=== PATIENT | female | born 1990 | race Caucasian/White ===

== ENCOUNTER 2020-11-24 05:53 | Emergency (ER) | payer OTHER ==
[2020-11-24 06:07] VITALS: BP 128/72
--- NOTE | 2020-11-24 06:24 | ED Physician Documentation ---
PD HPI HEENT - Stated complaint Stated Complaint: L EAR PX - Chief complaint Chief Complaint: Heent - History obtained from History obtained from: Patient - Additional information Additional information: Sent swimming in the ocean about 4 days ago she has had a feeling of plugged left ear and cannot hear like there is water in her ear. She tried some drops and other conservative measures without relief. Review of Systems Constitutional: denies: Fever, Chills Ears: reports: Loss of hearing. denies: Ear pain Nose: denies: Rhinorrhea / runny nose, Congestion PD PAST MEDICAL HISTORY - Past Medical History Past Medical History: No - Past Surgical History Past Surgical History: No - Present Medications Home Medications: Ambulatory Orders Medication Instructions Recorded Confirmed No Known Home Medications 11/24/20 11/24/20 - Allergies Allergies/Adverse Reactions: Allergies Allergy/AdvReac Type Severity Reaction Status Date / Time No Known Drug Allergies Allergy Verified 11/24/20 06:04 - Social History Does the pt smoke?: No Smoking Status: Never smoker Does the pt drink ETOH?: Yes Does the pt have substance abuse?: No - Immunizations Immunizations are current?: Yes PD ED PE NORMAL - Vitals Vital signs reviewed: Yes - General General: Alert and oriented X 3, No acute distress - HEENT HEENT: Other (Both ears have cerumen impaction) - Neuro Neuro: Alert and oriented X 3, Normal speech Results - Vitals Vitals: Vital Signs - 24 hr 11/24/20 06:04 Temperature 36.7 C Heart Rate 81 Respiratory 16 Rate Blood Pressure 128/72 O2 Saturation 99 Oxygen O2 Source Room air Procedures - General procedure General procedure: Using a combination of syringe irrigation and curette, both ears were cleared of cerumen, with significant relief for the patient. Departure - Departure Disposition: 01 Home, Self Care Clinical Impression: Impacted cerumen of both ears Instructions: ED Earwax Removal Discharge Date/Time: 11/24/20 06:38
== END 2020-11-24 06:38 | disposition home or self-care (01) ==
LOC: ED 05:53
DX: H61.23 Impacted cerumen, bilateral (principal)
CPT/HCPCS: 99281; 99283

== ENCOUNTER 2021-09-30 01:43 | Emergency (ER) | payer OTHER ==
[2021-09-30 01:50] VITALS: BP 130/79
[2021-09-30] MEDS ORDERED: predniSONE 20 MG TABLET PO STA (02:25)
--- NOTE | 2021-09-30 02:28 | ED Physician Documentation ---
PD HPI HEENT - Stated complaint Stated Complaint: THROAT PX - Chief complaint Chief Complaint: Heent - History obtained from History obtained from: Patient - Additional information Additional information: The patient comes to the emergency department chief complaint of sore throat for the last 4 days. She states that about a month ago, she began having sinus congestion after other family members had had something similar, and was treated at that time with a decongestant and an antibiotic. She states that that mostly seem to go away, though she has had a little bit of a lingering cough and mild nasal congestion. She has not had any fevers or chills and states that otherwise, she still just feels like she is getting over the lingering effects of the illness she had. She states she is actually felt very good this week and has gone running 3 times. However, she states that the sore throat has been very bad and that tonight, it hurts some but she could not sleep so she came in. The patient states that she has been taking Tylenol every day, several times a day and that this does seem to help but it does not totally take the pain away. The patient states she feels very uncomfortable with the idea of taking Tylenol on a daily basis and feels that it will be harmful if she continues to do this. She does note that she is taking no more than 650 mg every 4 hours. The patient was seen in urgent care 2 days ago and after hearing her story and examining her, her provider felt that this was probably just postnasal drip and gave her a single dose of steroid to help with inflammation. Patient states that it improved the symptoms greatly for about 24 hours but then the sore throat began to come back. The patient does admit to taking Tylenol before coming here and her throat is doing a little better. No other complaints at this time. Review of Systems Ten Systems: 10 systems reviewed and negative Constitutional: reports: Reviewed and negative Eyes: reports: Reviewed and negative Ears: reports: Reviewed and negative Nose: reports: Congestion Throat: reports: Sore throat Cardiac: reports: Reviewed and negative Respiratory: reports: Cough GI: reports: Reviewed and negative : reports: Reviewed and negative Skin: reports: Reviewed and negative Musculoskeletal: reports: Reviewed and negative Neurologic: reports: Reviewed and negative Psychiatric: reports: Reviewed and negative Endocrine: reports: Reviewed and negative Immunocompromised: reports: Reviewed and negative PD PAST MEDICAL HISTORY - Past Medical History Past Medical History: No - Past Surgical History Past Surgical History: No - Present Medications Home Medications: Ambulatory Orders Medication Instructions Recorded Confirmed HYDROcodone/ACET 7.5/325 DARCI 10 ml PO Q6HR PRN #60 ml 09/30/21 [Lortab 7.5/325 Darci] predniSONE [Deltasone] 60 mg PO DAILY 3 Days #9 tablet 09/30/21 - Allergies Allergies/Adverse Reactions: Allergies Allergy/AdvReac Type Severity Reaction Status Date / Time No Known Drug Allergies Allergy Verified 09/30/21 01:48 - Social History Does the pt smoke?: No Smoking Status: Never smoker Does the pt drink ETOH?: Yes Does the pt have substance abuse?: No - Immunizations Immunizations are current?: Yes PD ED PE NORMAL - Vitals Vital signs reviewed: Yes - General General: Alert and oriented X 3, No acute distress, Well developed/nourished - HEENT HEENT: Atraumatic, PERRL, EOMI, Moist mucous membranes, Pharynx benign (Mild erythema the arches but otherwise negative for tonsillar enlargement or exudates.) - Neck Neck: Supple, no meningeal sign, No adenopathy - Cardiac Cardiac: RRR, No murmur, Strong equal pulses - Respiratory Respiratory: No respiratory distress, Clear bilaterally - Derm Derm: Normal color, Warm and dry, No rash - Extremities Extremities: No deformity, No edema - Neuro Neuro: Alert and oriented X 3 - Psych Psych: Normal mood, Normal affect Results - Vitals Vitals: Vital Signs - 24 hr 09/30/21 01:45 Temperature 36.4 C L Heart Rate 94 Respiratory 18 Rate Blood Pressure 130/79 O2 Saturation 100 Oxygen O2 Source Room air PD MEDICAL DECISION MAKING - ED course Complexity details: considered differential, d/w patient ED course: I discussed with the patient that given her absence of new other symptoms, it is unlikely that she has strep or mono. It is possible that she has picked up a very mild case of new virus which is causing only a sore throat at this point, but it is hard to say as the patient does still have some nasal congestion and probably postnasal drip. At this point in time, I discussed with the patient that we can put her on a short course of steroids to help with the discomfort and also, a very small amount of a liquid narcotic for at night if she is very uncomfortable. However, the patient can also take [id number] ibuprofen and Tylenol if this is helpful. I discussed with the patient that it is not harmful to take these 2 medications as long as they are taken at the proper dosing and in the proper intervals. As far as testing, I have left this up to the patient. I feel that it is unlikely that testing for strep or mono will yield a positive result, and given that the patient does not have any malaise or other new or worsening symptoms besides a sore throat, it is unlikely that a viral panel will yield any helpful results. However, since the patient has had lingering symptoms and now a sore throat that is keeping her from sleep, I have offered the option to test. The patient has declined testing and would just like symptomatic management at this time. She is given a dose of prednisone in the emergency department and prescriptions for the next few days for at home. We have discussed the usual indications for return and follow-up. Departure - Departure Disposition: Home, Self Care Clinical Impression: Pharyngitis Qualifiers: Pharyngitis/tonsillitis etiology: unspecified etiology Qualified Code(s): J02.9 - Acute pharyngitis, unspecified Condition: Stable Instructions: ED Pharyngitis Viral Prescriptions: HYDROcodone/ACET 7.5/325 DARCI [Lortab 7.5/325 Darci] 10 ml PO Q6HR PRN #60 ml PRN Reason: Pain predniSONE [Deltasone] 60 mg PO DAILY 3 Days #9 tablet Comments: Your throat is mildly red, but otherwise, there is no evidence of swollen t onsils or the white exudates that we normally see with either strep or mono. Additionally, you have no other new symptoms to indicate significant illness. It is possible that you picked up a very mild case of a new virus that is mainly affecting your throat, or it is also possible that you have a combination of allergies and lingering effects of the virus that you had previously, that are causing some extra drainage into the back your throat, resulting in inflammation. This can cause significant pain, even though it does not represent a serious illness. At this point in time, you have opted to have symptomatic treatment without testing for other illness, which is reasonable. You may take the steroids each day for the next few days to help with inflammation and discomfort in your throat. You may also use ibuprofen and Tylenol as desired/needed. If you wish, you may take a dose of the liquid pain medication at night to help with discomfort and allow you to sleep better; however, please do not take this and Tylenol within 4 hours of each other, as the liquid medicine contains Tylenol as well. If you are not feeling better in the next week, please follow-up with your primary care physician for reevaluation. Your prescriptions have been electronically transmitted to the [facility] pharmacy in [place].
--- NOTE | 2021-09-30 13:09 | ED Physician Documentation ---
ED Addendum - Addendum Addendum: 09/30/21 13:09 Took call from patient, unable to fill these prescriptions at the [facility] pharmacy and the prescriptions were canceled and resent to [facility].
== END 2021-09-30 02:37 | disposition home or self-care (01) ==
LOC: ED 01:43
DX: J02.9 Acute pharyngitis, unspecified (principal)
CPT/HCPCS: 99282; J7512

== ENCOUNTER 2022-04-23 11:18 | Emergency (ER) | payer OTHER ==
[2022-04-23 11:52] VITALS: BP 141/95
--- NOTE | 2022-04-23 14:23 | ED Physician Documentation ---
History of Present Illness - Stated complaint Stated Complaint: L ARM PX - Chief complaint Chief Complaint: Ext Problem - History obtained from History obtained from: Patient - Additonal information Additional information: This is a very pleasant 31-year-old female who is generally healthy, who presents with 4 days of left arm pain, sensation of fullness and heaviness, some tingling into the tips of the fingers and feels cold to her. It started after she put the turkey in for Thanksgiving dinner but she states she did not strain her arm and it was not heavy, she denies any other repetitive motion activity, atypical movements, weightlifting or other lifting where she could have strained her arm or shoulder. She denies any neck or back injury. She denies any recent immobility or surgeries. She has not had any other areas of numbness or tingling, no facial numbness, no speech difficulty, no confusion or alteration in mental status, no ataxia. She is left-handed and it states she has noticed herself not instinctively using her left hand like she normally would. She does note that her son sometimes crawls into bed with her at night and digs up into her left scapula and she wonders if this may be contributing. She states she thought it was probably just a muscle strain but because it was on her left side and it was not getting better and she had some numbness, tingling and different sensations in her arm, she was concerned and wanted to be evaluated. Of note, patient does state that she is taken Tylenol on 2 occasions and thinks that that did help with the pain and Has noticed that she would forget about it sometimes during the day when she was distracted. Review of Systems Ten Systems: 10 systems reviewed and negative (Except as noted per HPI) PD PAST MEDICAL HISTORY - Past Medical History Past Medical History: No - Past Surgical History Past Surgical History: No - Present Medications Home Medications: Ambulatory Orders Medication Instructions Recorded Confirmed HYDROcodone/ACET 7.5/325 DARCI 10 ml PO Q6HR PRN #60 ml 09/30/21 [Lortab 7.5/325 Darci] predniSONE [Deltasone] 60 mg PO DAILY 3 Days #9 tablet 09/30/21 - Allergies Allergies/Adverse Reactions: Allergies Allergy/AdvReac Type Severity Reaction Status Date / Time No Known Drug Allergies Allergy Verified 04/23/22 11:52 - Social History Does the pt smoke?: No Smoking Status: Never smoker Does the pt drink ETOH?: Yes Does the pt have substance abuse?: No - Immunizations Immunizations are current?: Yes PD ED PE NORMAL - Vitals Vital signs reviewed: Yes - General General: Alert and oriented X 3, No acute distress, Well developed/nourished - HEENT HEENT: Atraumatic, Moist mucous membranes, Pharynx benign - Neck Neck: Supple, no meningeal sign, No JVD, Other (Full neck range of motion) - Cardiac Cardiac: RRR, No murmur, No gallop, No rub, Strong equal pulses - Respiratory Respiratory: No respiratory distress, Clear bilaterally - Abdomen Abdomen: Normal bowel sounds, Soft - Back Back: No spinal TTP - Derm Derm: Normal color, Warm and dry, No rash - Extremities Extremities: No deformity, No tenderness to palpate, Normal ROM s pain, No edema, Other (Brisk cap refill of the left arm, no appreciable weakness, And is able to move throughout range of motion. She does have tenderness with palpation of the left trapezius and around the left scapula) - Neuro Neuro: Alert and oriented X 3, No motor deficit, Normal speech Eye Opening: Spontaneous Motor: Obeys Commands Verbal: Oriented GCS Score: 15 - Psych Psych: Normal mood, Normal affect Results - Vitals Vitals: Vital Signs - 24 hr 04/23/22 11:48 Temperature 36.7 C Heart Rate 108 H Respiratory 14 Rate Blood Pressure 141/95 H O2 Saturation 99 Oxygen O2 Source Room air - EKG (time done) No standard instances Rhythm: NSR [place]: Normal Intervals: Normal NE Ischemia: Normal ST segments Compare to prior EKG: Old EKG unavailable Computer interpretation: Agree with computer - Labs Labs: Laboratory Tests 04/23/22 04/23/22 04/23/22 14:27 14:27 14:27 WBC 4.6 L RBC 4.43 Hgb 13.9 Hct 39.1 MCV 88.3 MCH 31.4 H MCHC 35.5 RDW 11.8 L Plt Count 184 MPV 9.3 Neut # (Auto) 2.1 Lymph # (Auto) 2.2 Hale # (Auto) 0.3 Eos # (Auto) 0.0 Baso # (Auto) 0.0 Absolute Nucleated RBC 0.00 Nucleated RBC % 0.0 Sodium 139 Potassium 3.7 Chloride 103 Carbon Dioxide 27 Anion Gap 9.0 BUN 12 Creatinine 0.9 Estimated GFR (MDRD) 72 L Glucose 112 H Calcium 9.9 Troponin I High Sens < 2.3 L PD MEDICAL DECISION MAKING - ED course Complexity details: reviewed results, re-evaluated patient, considered differential, d/w patient ED course: This is a generally healthy And very pleasant 31-year-old female who presented with left arm fullness sensation, weakness, discomfort As per HPI. She is well- appearing on physical exam with no obvious motor deficit, she does have some Tenderness around the left scapula and left trapezius but it was not clear that this is the cause of her symptoms as patient cannot recall any acute injuries or stress in that area. I discussed with patient the differentials could include pinched nerve, muscle tightness, and less likely ACS, DVT, or acute neurologic event. Patient had no appreciable neurodeficits on exam but did feel decreased sensation in the left arm did not feel the same to her therefore we did discuss doing additional evaluation such as a CT scan and patient did want to proceed. The CT scan was negative. I also discussed with the patient that I recommend ruling out ACS as well though the suspicion is very low. Her chest troponin is negative, other labs are negative, EKG shows no acute ischemic changes.I think because the patient's work-up here has been reassuring and I have lower suspicion for DVT or ACS or acute neurologic event, I do think this is a muscle strain and or pinched nerve and recommended supportive measures including ongoing ibuprofen and Tylenol and warm compresses as well as light massage of the area and try to avoid any recurrent stressors or in repetitive motion. Patient is to follow-up with her primary doctor if no improvement in 2 to 3 days or return to the ER at any point time if new or worsening symptoms. Departure - Departure Disposition: 01 Home, Self Care Clinical Impression: Pain in extremity Qualifiers: Extremity pain location: upper extremity Laterality: left Qualified Code(s): M79.602 - Pain in left arm Condition: Good Instructions: ANTI-INFLAMMATORY, General Comments: You presented with left arm pain as well as a sensation of fullness, heaviness and tingling. Your physical exam here is reassuring and I suspect this is related to tightness in the left trapezius muscle however to further evaluate, we did obtain A cardiac work-up which was reassuring, her EKG is stable, we also obtained a head CT which also was stable. Sees continue ibuprofen, Tylenol and heating pad to the area and do light stretching and range of motion activity. If you are having ongoing symptoms, please see your primary doctor in the next several days to a week. Discharge Date/Time: 04/23/22 15:47
[2022-04-23 14:35] LABS: BASOPHILS % (AUTO) 0.9 %; EOSINOPHILS % (AUTO) 0.7 %; HCT - HEMATOCRIT 39.1 % (37.0-47.0); HGB - HEMOGLOBIN 13.9 g/dL (12.0-16.0); LYMPHOCYTES # (AUTO) 2.2 10^3/uL (1.5-3.5); LYMPHOCYTES % (AUTO) 47.1 %; MEAN CORPUSCULAR HEMOGLOBIN 31.4 pg (27.0-31.0); MEAN CORPUSCULAR HGB CONC 35.5 g/dL (32.0-36.0); MEAN CORPUSCULAR VOLUME 88.3 fL (81.0-99.0); MEAN PLATELET VOLUME 9.3 fL (7.9-10.8); MONOCYTES # (AUTO) 0.3 10^3/uL (0.0-1.0); MONOCYTES % (AUTO) 6.7 %; NEUTROPHILS # (AUTO) 2.1 10^3/uL (1.5-6.6); NEUTROPHILS % (AUTO) 44.4 %; PLT - PLATELET COUNT 184 10^3/uL (130-450); RED BLOOD COUNT 4.43 10^6/uL (4.20-5.40); RED CELL DISTRIBUTION WIDTH 11.8 % (12.0-15.0); WHITE BLOOD COUNT 4.6 x10^3/uL (4.8-10.8)
--- NOTE | 2022-04-23 14:49 | CT Report ---
PROCEDURE: HEAD WO INDICATIONS: left arm weakness/heaviness TECHNIQUE: Noncontrast 4.5 mm thick angled axial sections acquired from the foramen magnum to the vertex. For r adiation dose reduction, the following was used: automated exposure control, adjustment of mA and/or kV according to patient size. COMPARISON: None. FINDINGS: Image quality: There is streak artifact seen through the skull base. CSF spaces: Basal cisterns are patent. No extra-axial fluid collections. Ventricles are normal in size and shape. Brain: No midline shift. No intracranial masses or hemorrhage. Whitlock-white matter interface is norm al. Skull and face: Calvarium and visualized facial bones are intact, without suspicious lesions. Sinuses: Visualized sinuses and mastoids are clear. IMPRESSION: No intracranial hemorrhage is seen. No significant intracranial abnormality is seen. If there is strong clinical concern for a stroke, please consider a dedicated brain MRI for further e valuation (assuming that there is no contraindication to MRI). Reviewed by: Evan Hardy MD on 04/23/2022 1:48 PM [facility] Approved by: Evan Hardy MD on 04/23/2022 1:48 PM [facility] Station ID: [id number]
[2022-04-23 14:54] LABS: CALCIUM 9.9 mg/dL (8.5-10.3); CREATININE 0.9 mg/dL (0.4-1.0); POTASSIUM 3.7 mmol/L (3.5-5.0)
== END 2022-04-23 15:47 | disposition home or self-care (01) ==
LOC: ED 11:18
DX: M79.602 Pain in left arm (principal)
CPT/HCPCS: 36415; 80048; 84484; 85025; 93005; 99284

== ENCOUNTER 2022-08-20 03:14 | Outpatient (CLI) | payer OTHER | END 2022-08-20 03:15 | disposition critical access hospital (66) | LOC: EMS 03:14 | DX: R11.2 Nausea with vomiting, unspecified (principal); R19.7 Diarrhea, unspecified; R25.2 Cramp and spasm; R52 Pain, unspecified | CPT/HCPCS: A0425; A0427 ==

== ENCOUNTER 2022-08-20 03:26 | Emergency (ER) | payer OTHER ==
[2022-08-20] MEDS ORDERED: KETOROLAC 30 MG/ML VIAL IVP STA (03:33)
[2022-08-20] MEDS ORDERED: SODIUM CHLORIDE 0.9% 1,000 ML IV STA ×2 (03:33→06:39)
[2022-08-20 03:54] LABS: BASOPHILS % (AUTO) 0.2 %; EOSINOPHILS % (AUTO) 0.2 %; HCT - HEMATOCRIT 42.8 % (37.0-47.0); LYMPHOCYTES # (AUTO) 0.5 10^3/uL (1.5-3.5); LYMPHOCYTES % (AUTO) 4.3 %; MEAN CORPUSCULAR HEMOGLOBIN 31.5 pg (27.0-31.0); MEAN CORPUSCULAR VOLUME 89.9 fL (81.0-99.0); MEAN PLATELET VOLUME 9.2 fL (7.9-10.8); MONOCYTES # (AUTO) 0.7 10^3/uL (0.0-1.0); MONOCYTES % (AUTO) 5.8 %; NEUTROPHILS # (AUTO) 10.3 10^3/uL (1.5-6.6); NEUTROPHILS % (AUTO) 89.2 %; PLT - PLATELET COUNT 181 10^3/uL (130-450); RED BLOOD COUNT 4.76 10^6/uL (4.20-5.40); RED CELL DISTRIBUTION WIDTH 12.4 % (12.0-15.0); WHITE BLOOD COUNT 11.6 x10^3/uL (4.8-10.8)
[2022-08-20 04:06] LABS: ALBUMIN/GLOBULIN RATIO 1.8 (1.0-2.2); CALCIUM 9.1 mg/dL (8.5-10.3); CREATININE 0.9 mg/dL (0.4-1.0); POTASSIUM 3.9 mmol/L (3.5-5.0); TOTAL PROTEIN 7.8 g/dL (6.7-8.2)
--- NOTE | 2022-08-20 04:06 | ED Physician Documentation ---
PD HPI NVD - Stated complaint Stated Complaint: N/V/D - Chief complaint Chief Complaint: Abd Pain - History obtained from History obtained from: Patient, EMS - History of Present Illness Timing - onset: Enter time (2299), Yesterday Timing - duration: Hours Timing - details: Gradual onset, Still present Associated symptoms: Abdominal pain Contributing factors: Sick contact (son sick with similar has resolved) Improved by: Vomiting Similar symptoms before: Diagnosis (gastroenteritis) Recently seen: Not recently seen - Additonal information Additional information: 31-year-old Dana Godinez is brought in by paramedics earlier this morning with acute onset of vomiting and abdominal pain. She has a young son who is accompanying her here today who was ill with similar and has resolved his symptoms. She received zofran and some fluid en-route to the hospital and has improvement in her nausea and has not vomited since. Review of Systems Constitutional: denies: Fever Ears: denies: Ear pain Nose: denies: Congestion Throat: denies: Sore throat Cardiac: denies: Chest pain / pressure, Palpitations Respiratory: denies: Dyspnea, Cough GI: reports: Abdominal Pain, Nausea, Vomiting : denies: Dysuria, Frequency PD PAST MEDICAL HISTORY - Past Medical History Past Medical History: No - Past Surgical History Past Surgical History: No - Present Medications Home Medications: Ambulatory Orders Medication Instructions Recorded Confirmed Ondansetron Odt [Zofran] 4 mg TL Q6H PRN #10 tablet 08/20/22 - Allergies Allergies/Adverse Reactions: Allergies Allergy/AdvReac Type Severity Reaction Status Date / Time No Known Drug Allergies Allergy Verified 08/20/22 03:49 - Social History Does the pt smoke?: No Smoking Status: Never smoker Does the pt drink ETOH?: Yes Does the pt have substance abuse?: No - Immunizations Immunizations are current?: Yes - POLST Patient has POLST: No PD ED PE NORMAL - Vitals Vital signs reviewed: Yes (tachy and wide pulse pressure ) - General General: Alert and oriented X 3, Well developed/nourished - HEENT HEENT: Atraumatic, PERRL, EOMI - Neck Neck: Supple, no meningeal sign, No bony TTP, No JVD - Cardiac Cardiac: RRR, No murmur - Respiratory Respiratory: No respiratory distress, Clear bilaterally - Abdomen Abdomen: Normal bowel sounds, Soft, Non distended, No organomegaly, Other (mild general tenderness without garding or rebound tenderness. ) - Back Back: No CVA TTP, No spinal TTP - Derm Derm: Normal color, Warm and dry, No rash - Extremities Extremities: No deformity, No edema - Neuro Neuro: Alert and oriented X 3, No motor deficit, No sensory deficit, Normal speech Eye Opening: Spontaneous Motor: Obeys Commands Verbal: Oriented GCS Score: 15 - Psych Psych: Normal mood, Normal affect Results - Vitals Vitals: Vital Signs - 24 hr 08/20/22 08/20/22 08/20/22 03:28 03:41 04:09 Temperature 37.0 C Heart Rate 107 H 113 H 113 H Respiratory 18 18 16 Rate Blood Pressure 102/47 L 102/47 L 106/79 O2 Saturation 100 97 98 08/20/22 08/20/22 08/20/22 05:27 05:47 06:51 Temperature 36.3 C L 36.3 C L Heart Rate 104 H 104 H 108 H Respiratory 18 18 18 Rate Blood Pressure 115/63 97/54 L 96/60 O2 Saturation 95 96 96 08/20/22 08:00 Temperature Heart Rate 97 Respiratory 20 Rate Blood Pressure 125/67 O2 Saturation 100 Oxygen O2 Source Room air - Labs Labs: Laboratory Tests 08/20/22 08/20/22 08/20/22 03:50 03:50 07:18 WBC 11.6 H RBC 4.76 Hgb 15.0 Hct 42.8 MCV 89.9 MCH 31.5 H MCHC 35.0 RDW 12.4 Plt Count 181 MPV 9.2 Neut # (Auto) 10.3 H Lymph # (Auto) 0.5 L Blair # (Auto) 0.7 Eos # (Auto) 0.0 Baso # (Auto) 0.0 Absolute Nucleated RBC 0.00 Nucleated RBC % 0.0 Sodium 138 Potassium 3.9 Chloride 105 Carbon Dioxide 22 Anion Gap 11.0 BUN 16 Creatinine 0.9 Estimated GFR (MDRD) 72 L Glucose 105 H Calcium 9.1 Total Bilirubin 1.0 AST 17 ALT 13 Alkaline Phosphatase 47 Total Protein 7.8 Albumin 5.0 Globulin 2.8 Albumin/Globulin Ratio 1.8 Lipase 24 Urine Color YELLOW Urine Clarity CLEAR Urine pH 6.5 Ur Specific Ava 1.020 Urine Protein NEGATIVE Urine Glucose (UA) NEGATIVE Urine Ketones >=80 H Urine Occult Blood NEGATIVE Urine Nitrite NEGATIVE Urine Bilirubin SMALL H Urine Urobilinogen 0.2 (NORMAL) Ur Leukocyte Esterase NEGATIVE Ur Microscopic Review NOT INDICATED Urine Culture Comments NOT INDICATED Urine HCG, Qual NEGATIVE PD Medical Decision Making - ED course Complexity details: reviewed old records, reviewed results, re-evaluated patient, considered differential, d/w patient, d/w family ED course: 31-year-old female with acute nausea vomiting abdominal pain presents to the emergency department with her children also sick with vomiting. She had some relief with Zofran in route she had good relief of her pain with a single dose of Toradol and she had further nausea without relief with zofran she was administered Reglan with improvement. She is administered a second liter of saline. Departure - Departure Disposition: 01 Home, Self Care Clinical Impression: Gastroenteritis Condition: Stable Instructions: ED Gastroenteritis Viral Follow-Up: ADINA Garcia [Provider Group] Prescriptions: Ondansetron Odt [Zofran] 4 mg TL Q6H PRN #10 tablet PRN Reason: Nausea / Vomiting Comments: Dana, today looks like you have viral gastroenteritis and this is considered contagious obviously your children also have evidence of this. Today we were able to provide some intravenous fluid and some nausea medication. I have E scribed some nausea medication for you to the [facility] in [place].
[2022-08-20] MEDS ORDERED: ONDANSETRON 4 MG/2 ML VIAL IVP STA (05:26)
[2022-08-20] MEDS ORDERED: METOCLOPRAMIDE 10 MG/2 ML VIAL IVP STA (05:46)
[2022-08-20 07:32] LABS: GLUCOSE, URINE (UA) NEGATIVE (NEGATIVE); KETONES,URINE (UA) >=80 mg/dL (NEGATIVE); LEUKOCYTE ESTERASE, URINE NEGATIVE (NEGATIVE); NITRITE,URINE NEGATIVE (NEGATIVE); OCCULT BLOOD,URINE NEGATIVE (NEGATIVE); PH,URINE 6.5 PH (5.0-7.5); PROTEIN,URINE NEGATIVE (NEGATIVE); UROBILINOGEN,URINE 0.2 (NORMAL) E.U./dL (NORMAL)
[2022-08-20 07:43] LABS: CLARITY,URINE CLEAR (CLEAR); HCG UR QUAL NEGATIVE
[2022-08-20 07:44] LABS: BILIRUBIN,URINE SMALL (NEGATIVE); ICTOTEST,URINE POSITIVE
[2022-08-20 08:04] VITALS: BP 125/67
== END 2022-08-20 08:48 | disposition home or self-care (01) ==
LOC: EDUNIT# → ED 03:26
DX: K52.9 Noninfective gastroenteritis and colitis, unspecified (principal)
CPT/HCPCS: 36415; 80053; 81003; 81025; 83690; 85025; 96374; 96375; 99283; J2765; 81001; 87086

== ENCOUNTER 2023-09-04 16:27 | Emergency (ER) | payer OTHER ==
[2023-09-04 16:58] VITALS: O2SAT 100
[2023-09-04 17:48] LABS: BILIRUBIN,URINE NEGATIVE (NEGATIVE); GLUCOSE, URINE (UA) NEGATIVE (NEGATIVE); HCG UR QUAL NEGATIVE; KETONES,URINE (UA) NEGATIVE (NEGATIVE); LEUKOCYTE ESTERASE, URINE TRACE (NEGATIVE); NITRITE,URINE NEGATIVE (NEGATIVE); OCCULT BLOOD,URINE NEGATIVE (NEGATIVE); PROTEIN,URINE NEGATIVE (NEGATIVE); UROBILINOGEN,URINE 0.2 (NORMAL) E.U./dL (NORMAL)
[2023-09-04 17:56] LABS: AMORPHOUS SEDIMENT,UR Few /LPF; BACTERIA,URINE Rare /HPF (None Seen); CLARITY,URINE HAZY (CLEAR); RBC,URINE None Seen /HPF (0-5); SQUAMOUS EPITHELIAL CELL,UR FEW Squamous (<= Few); WBC,URINE 0-3 /HPF (0-5)
--- NOTE | 2023-09-04 17:56 | ED Physician Documentation ---
History of Present Illness - Stated complaint Stated Complaint: PEARSON - Chief complaint Chief Complaint: Neuro - History obtained from History obtained from: Patient - History of Present Illness Pain level max: 6 Pain level now: 6 - Additonal information Additional information: Patient is a 32-year-old female who presents to the emergency department stating that she has had intermittent headaches for the past 2 weeks. She states that it will usually resolve with Tylenol but then recurs. She states she is training for a marathon. She states that sometimes running helps the headache. Did have slight rhinorrhea and congestion last week, none now. No numbness or tingling. No vomiting. Occasional nausea. She states the pain is in the back of the head, not the neck. No facial pain. No sinus pain. No sore throat. She states there is a possibility of . Review of Systems Constitutional: denies: Fever, Chills Eyes: denies: Decreased vision Ears: denies: Ear pain Nose: denies: Rhinorrhea / runny nose, Congestion Respiratory: denies: Cough GI: denies: Nausea, Vomiting, Diarrhea Skin: denies: Rash Musculoskeletal: denies: Neck pain, Back pain Neurologic: denies: Focal weakness, Numbness, Head injury PD PAST MEDICAL HISTORY - Past Medical History Past Medical History: Yes - Past Surgical History Past Surgical History: No - Present Medications Home Medications: Ambulatory Orders Medication Instructions Recorded Confirmed No Known Home Medications 09/04/23 09/04/23 - Allergies Allergies/Adverse Reactions: Allergies Allergy/AdvReac Type Severity Reaction Status Date / Time No Known Drug Allergies Allergy Verified 09/04/23 16:53 - Social History Does the pt smoke?: No Smoking Status: Never smoker Does the pt drink ETOH?: Yes Does the pt have substance abuse?: No - Immunizations Immunizations are current?: Yes - POLST Patient has POLST: No PD ED PE NORMAL - Vitals Vital signs reviewed: Yes - General General: Alert and oriented X 3, No acute distress - HEENT HEENT: Atraumatic, PERRL, EOMI, Ears normal, Moist mucous membranes, Pharynx benign - Neck Neck: Supple, no meningeal sign, No bony TTP, No JVD, No bruit - Cardiac Cardiac: RRR, Strong equal pulses - Respiratory Respiratory: No respiratory distress, Clear bilaterally - Abdomen Abdomen: Soft, Non tender, Non distended - Back Back: No spinal TTP - Derm Derm: Warm and dry - Extremities Extremities: No edema, No calf tenderness / cord - Neuro Neuro: Alert and oriented X 3, 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, No motor deficit, No sensory deficit, Normal speech, Other (Normal cerebellar test, normal gait) Eye Opening: Spontaneous Motor: Obeys Commands Verbal: Oriented GCS Score: 15 - Psych Psych: Normal mood, Normal affect Results - Vitals Vitals: Vital Signs - 24 hr 09/04/23 09/04/23 09/04/23 16:47 16:53 17:35 Temperature 36.9 C Heart Rate 75 86 92 Respiratory 16 16 16 Rate Blood Pressure 134/71 H 137/105 H 123/65 O2 Saturation 100 100 100 09/04/23 19:39 Temperature Heart Rate 53 L Respiratory 16 Rate Blood Pressure 116/86 H O2 Saturation 100 Oxygen O2 Source Room air - Labs Labs: Laboratory Tests 09/04/23 09/04/23 09/04/23 17:37 17:37 18:10 WBC 8.9 RBC 4.43 Hgb 14.0 Hct 39.7 MCV 89.6 MCH 31.6 H MCHC 35.3 RDW 12.6 Plt Count 233 MPV 9.3 Neut # (Auto) 5.4 Lymph # (Auto) 2.9 [place] # (Auto) 0.5 Eos # (Auto) 0.1 Baso # (Auto) 0.0 Absolute Nucleated RBC 0.00 Nucleated RBC % 0.0 Sodium Potassium Chloride Carbon Dioxide Anion Gap BUN Creatinine Estimated GFR (MDRD) Glucose Calcium Phosphorus Magnesium Total Bilirubin AST ALT Alkaline Phosphatase Total Protein Albumin Globulin Albumin/Globulin Ratio Urine Color YELLOW Urine Clarity HAZY Urine pH 7.0 Ur Specific Lena 1.020 Urine Protein NEGATIVE Urine Glucose (UA) NEGATIVE Urine Ketones NEGATIVE Urine Occult Blood NEGATIVE Urine Nitrite NEGATIVE Urine Bilirubin NEGATIVE Urine Urobilinogen 0.2 (NORMAL) Ur Leukocyte Esterase TRACE H Urine RBC None Seen Urine WBC 0-3 Ur Squamous Epith Cells FEW Squamous Amorphous Sediment Few Urine Bacteria Rare Ur Microscopic Review INDICATED Urine Culture Comments INDICATED Urine HCG, Qual NEGATIVE 09/04/23 18:10 WBC RBC Hgb Hct MCV MCH MCHC RDW Plt Count MPV Neut # (Auto) Lymph # (Auto) [place] # (Auto) Eos # (Auto) Baso # (Auto) Absolute Nucleated RBC Nucleated RBC % Sodium 137 Potassium 3.6 Chloride 104 Carbon Dioxide 27 Anion Gap 6.0 BUN 12 Creatinine 0.9 Estimated GFR (MDRD) 72 L Glucose 94 Calcium 10.1 Phosphorus 3.4 Magnesium 1.8 Total Bilirubin 0.2 AST 16 ALT 18 Alkaline Phosphatase 55 Total Protein 7.6 Albumin 4.6 Globulin 3.0 Albumin/Globulin Ratio 1.5 Urine Color Urine Clarity Urine pH Ur Specific Lena Urine Protein Urine Glucose (UA) Urine Ketones Urine Occult Blood Urine Nitrite Urine Bilirubin Urine Urobilinogen Ur Leukocyte Esterase Urine RBC Urine WBC Ur Squamous Epith Cells Amorphous Sediment Urine Bacteria Ur Microscopic Review Urine Culture Comments Urine HCG, Qual - Rads (name of study) head CT Relevant Findings:: Final report received, See rad report PD Medical Decision Making - ED course Complexity details: reviewed results, re-evaluated patient, considered differential, d/w patient ED course: Patient was given IV fluids and a dose of Toradol. Headache resolved. Her head CT does not show any evidence of tumors or masses, but she does have sinus disease in her sphenoid and ethmoid sinuses, these could be causing headaches. Recommend she trial decongestants at home and intranasal steroid such as Flonase. No focal neurological deficits. No cerebellar abnormalities. Normal gait. We will have her follow-up with her doctor for further care. Patient counseled regarding signs and symptoms for which I believe and urgent re- evaluation would be necessary. Patient with good understanding of and agreement to plan and is comfortable going home at this time This document was made in part using voice recognition software. While efforts are made to proofread this document, sound alike and grammatical errors may occur. Departure - Departure Disposition: 01 Home, Self Care Clinical Impression: Headache Qualifiers: Headache type: unspecified Headache chronicity pattern: acute headache Intractability: not intractable Qualified Code(s): R51.9 - Headache, unspecified Condition: Good Instructions: ED Cephalgia Unspecified Follow-Up: SARAH BETH JEWELL MD [Primary Care Provider] - Within 1 week Comments: The cause of your headaches is unclear. Your laboratory testing does not show any significant abnormalities today. Your head CT does not show any evidence of tumors or masses. If the headaches continue to persist, your doctor may want to perform an MRI of your brain. As we discussed you do have some sinus opacification especially in your sphenoid sinuses and ethmoid sinuses. I would recommend decongestants if your headaches recur as is possible of the ethmoid and sphenoid sinuses could be causing headaches. Usually this would improve with Flonase and Zyrtec D. The Zyrtec-D is behind the counter with the pharmacist. PROCEDURE: Head WO INDICATIONS: headache x 2 weeks TECHNIQUE: Noncontrast 4.5 mm thick angled axial sections acquired from the foramen magnum to the vertex. For radiation dose reduction, the following was used: automated exposure control, adjustment of mA and/or kV according to patient size. COMPARISON: 04/23/2022 FINDINGS: Image quality: Excellent. CSF spaces: Basal cisterns are patent. No extra-axial fluid collections. Ventricles are normal in size and shape. Brain: No midline shift. No intracranial masses or hemorrhage. Whitlock-white matter interface is normal. Skull and face: Calvarium and visualized facial bones are intact, without suspicious lesions. Sinuses: There is complete opacification of the visualized left maxillary sinus, with significant opacification of the sphenoid sinuses. Moderate mucosal thickening can be seen involving the left ethmoid air cells and the right maxillary sinus. No significant abnormal fluid can be seen within the mastoid air cells. IMPRESSION: No acute intracranial pathology. To the limits of this noncontrast study, no findings of masses or mass effect can be seen. Significant paranasal sinus disease can be seen, which is new compared to 2021. Forms: PCP List Discharge Date/Time: 09/04/23 20:01
[2023-09-04] MEDS: SODIUM CHLORIDE 0.9% 1,000 ML IV STA (18:12)
[2023-09-04 18:16] LABS: BASOPHILS % (AUTO) 0.4 %; EOSINOPHILS # (AUTO) 0.1 10^3/uL (0.0-0.7); EOSINOPHILS % (AUTO) 1.1 %; HCT - HEMATOCRIT 39.7 % (37.0-47.0); LYMPHOCYTES # (AUTO) 2.9 10^3/uL (1.5-3.5); LYMPHOCYTES % (AUTO) 32.3 %; MEAN CORPUSCULAR HEMOGLOBIN 31.6 pg (27.0-31.0); MEAN CORPUSCULAR HGB CONC 35.3 g/dL (32.0-36.0); MEAN CORPUSCULAR VOLUME 89.6 fL (81.0-99.0); MEAN PLATELET VOLUME 9.3 fL (7.9-10.8); MONOCYTES # (AUTO) 0.5 10^3/uL (0.0-1.0); MONOCYTES % (AUTO) 5.9 %; NEUTROPHILS # (AUTO) 5.4 10^3/uL (1.5-6.6); NEUTROPHILS % (AUTO) 60.2 %; PLT - PLATELET COUNT 233 10^3/uL (130-450); RED BLOOD COUNT 4.43 10^6/uL (4.20-5.40); RED CELL DISTRIBUTION WIDTH 12.6 % (12.0-15.0); WHITE BLOOD COUNT 8.9 x10^3/uL (4.8-10.8)
[2023-09-04 18:29] LABS: ALBUMIN 4.6 g/dL (3.2-5.5); ALBUMIN/GLOBULIN RATIO 1.5 (1.0-2.2); BILIRUBIN,TOTAL 0.2 mg/dL (0.2-1.0); CALCIUM 10.1 mg/dL (8.5-10.3); CREATININE 0.9 mg/dL (0.6-1.3); MAGNESIUM 1.8 mg/dL (1.7-2.3); PHOSPHORUS 3.4 mg/dL (2.5-5.0); POTASSIUM 3.6 mmol/L (3.5-4.5); TOTAL PROTEIN 7.6 g/dL (6.4-8.9)
--- NOTE | 2023-09-04 18:31 | CT Report ---
PROCEDURE: Head WO INDICATIONS: headache x 2 weeks TECHNIQUE: Noncontrast 4.5 mm thick angled axial sections acquired from the foramen magnum to the vertex. For r adiation dose reduction, the following was used: automated exposure control, adjustment of mA and/or kV according to patient size. COMPARISON: 04/23/2022 FINDINGS: Image quality: Excellent. CSF spaces: Basal cisterns are patent. No extra-axial fluid collections. Ventricles are normal in size and shape. Brain: No midline shift. No intracranial masses or hemorrhage. Whitlock-white matter interface is norm al. Skull and face: Calvarium and visualized facial bones are intact, without suspicious lesions. Sinuses: There is complete opacification of the visualized left maxillary sinus, with significant opa cification of the sphenoid sinuses. Moderate mucosal thickening can be seen involving the left ethmoi d air cells and the right maxillary sinus. No significant abnormal fluid can be seen within the masto id air cells. IMPRESSION: No acute intracranial pathology. To the limits of this noncontrast study, no findings of masses or mass effect can be seen. Significant paranasal sinus disease can be seen, which is new compared to 2021. Reviewed by: Evan Hardy MD on 09/04/2023 5:30 PM CHANTE Approved by: Evan Hardy MD on 09/04/2023 5:30 PM [facility]QUINN Station ID: [id number]
[2023-09-04] MEDS: KETOROLAC 30 MG/ML VIAL IVP STA (18:46)
[2023-09-04 19:44] VITALS: BP 116/86
--- NOTE | 2023-09-06 12:31 | ED Physician Documentation ---
ED Addendum - Addendum Addendum: 09/06/23 12:31 I received a culture result for this patient, demonstrating significant bacteria in the patient's urine. As such, a prescription for Keflex was electronically transmitted to the [facility] pharmacy in [place], the patient's pharmacy of choice on record. The patient was contacted by nursing staff and advised of the need to citrus picker the prescription and begin treatment.
== END 2023-09-04 20:01 | disposition home or self-care (01) ==
LOC: ED 16:27
DX: R51.9 Headache, unspecified (principal); J32.3 Chronic sphenoidal sinusitis; J32.2 Chronic ethmoidal sinusitis
CPT/HCPCS: 36415; 80053; 81001; 81003; 81025; 83735; 84100; 85025; 87077; 87086; 96374; 99283